=== PATIENT | female | born 1930 | race Caucasian/White ===

== ENCOUNTER 2016-05-04 10:48 | Emergency (ER) | payer MEDICARE | END 2016-05-04 15:50 | disposition home or self-care (01) | LOC: ER 10:48 | DX: R53.1 Weakness (principal); T46.1X5A Adverse effect of calcium-channel blockers, initial encounter; I48.91 Unspecified atrial fibrillation; Z79.01 Long term (current) use of anticoagulants; Z79.899 Other long term (current) drug therapy | CPT/HCPCS: 36415 ==

== ENCOUNTER 2016-05-13 10:22 | Emergency (ER) | payer MEDICARE | END 2016-05-13 15:25 | disposition home or self-care (01) | LOC: ER 10:22 | DX: R53.1 Weakness (principal); I48.91 Unspecified atrial fibrillation; K21.9 Gastro-esophageal reflux disease without esophagitis; I10 Essential (primary) hypertension; E78.5 Hyperlipidemia, unspecified; Z90.710 Acquired absence of both cervix and uterus; Z79.82 Long term (current) use of aspirin; Z79.01 Long term (current) use of anticoagulants; Z79.899 Other long term (current) drug therapy | CPT/HCPCS: 36415; 96361; 96374 ==